=== PATIENT | female | born 1985 | race Hispanic/Latino ===

== ENCOUNTER 2019-08-17 07:12 | Emergency (ER) | payer OTHER, SELFPAY ==
--- OUTSIDE RECORDS SUMMARY | 2019-08-17 07:15 | XMS REPORT | Continuity of Care Document ---
:1985 Author Organization [facility] t Address [address] [place] [address] Care Team Providers Name Role Phone Unavailable Unavailable Unavailable Problems Condition Condition Condition Status Onset Resolution Last Treating Co mments Source Name Details Category Date Date Treatment Clinician Date Iron Iron Diagnosis Active [facility] deficiency deficiency Edna kes - anemia, anemia, Memoria unspecifie unspecifie l d iron d iron Outpati deficiency deficiency en t anemia anemia Clinics type type Adult BMI Adult BMI Problem Active [facility] 34.0-34.9 34.0-34.9 Luke s - kg/sq m kg/sq m Memoria [facility] ent Clinics Fatigue, Fatigue, Problem Active [facility]specifie Edna kes - [facility] Vitamin D Vitamin D Diagnosis Active [facility] deficiency [facility] En[facility] Allergies, Adverse Reactions, Alerts This patient has no known allergies or adverse reactions. Medications Ordered Filled Start Stop Current Ordering Indication Dosage Frequency Signature Comments Components Source Medication Medication Date Date Medication? Clinician (SIG) Name Name Vitamin D3 Vitamin D3 2018- No Anthony [address] [facility] 09-13 [facility] - 00:00: 00:00 Memoria 00 :00 [facility] Clinics Ferrous Ferrous Yes Anthony [address] Sulfate Sulfate 05-17 [facility] - 00:00: Memoria 00 [facility] Clinics Procedures This patient has no known procedures. Encounters Start End Encounter Admission Attending Care Care Encounter Source Date/Time Date/Time Type Type Clinicians Facility Department ID 2017-10-10 2017-10-10 [facility] [id number] [facility] [address] 07:55:00 07:55:[address] [facility] 2017-09-13 2017-09-13 Outpatient Jessa Germaint [id number] 10:00:00 10:00:00 [facility] [employer] [facility] 2017-05-17 2017-05-17 Outpatient Jessa Germaint [id number] 10:30:00 10:30:00 [employer] [facility] ent Clinics Results This patient has no known results.
--- NOTE | 2019-08-17 09:52 | ER ---
Nurse's Notes [facility] Name: Mandi Solitario Age: 33 yrs Sex: Female : 1985 Arrival Date: 08/17/2019 Time: 07:18 Bed DIS2 Private MD: Diagnosis: Acute pharyngitis Presentation: 08/16 07:52 Chief complaint: Patient states: sore throat since yesterday, no fever. Coronavirus iw screen: Proceed with normal triage. Patient denies a cough. Patient denies shortness of breath or difficulty breathing. Patient denies measured and/or subjective temperature greater than 100.4F prior to today's visit. Patient denies travel on a cruise ship or to a country the [facility] currently lists as an affected area. Patient denies contact with known and/or suspected case of COVID-19. Ebola Screen: Patient negative for fever greater than or equal to 101.5 degrees Fahrenheit, and additional compatible Ebola Virus Disease symptoms Patient denies exposure to infectious person. Patient denies travel to an Ebola-affected area in the 21 days before illness onset. No symptoms or risks identified at this time. Initial Sepsis Screen: Does the patient meet any 2 criteria? No. Patient's initial sepsis screen is negative. Does the patient have a suspected source of infection? No. Patient's initial sepsis screen is negative. Risk Assessment: Do you want to hurt yourself or someone else? Patient reports no desire to harm self or others. Onset of symptoms was August 16, 2019. 07:52 Method Of Arrival: Ambulatory iw 07:52 Acuity: JUAN 4 iw Triage Assessment: 09:00 General: Appears in no apparent distress. comfortable, Behavior is calm, cooperative, bp appropriate for age. Pain: Complains of pain in SORE THROAT. EENT: Reports pain when swallowing. Neuro: No deficits noted. Cardiovascular: No deficits noted. Respiratory: No deficits noted. GI: No signs and/or symptoms were reported involving the gastrointestinal system. : No signs and/or symptoms were reported regarding the genitourinary system. Derm: No deficits noted. Musculoskeletal: No deficits noted. 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 - Social history:: Smoking status: Patient denies any tobacco usage or history of. Screenin:55 Abuse screen: Denies threats or abuse. Denies injuries from another. Nutritional iw screening: No deficits noted. Tuberculosis screening: No symptoms or risk factors identified. Fall Risk None identified. Assessment: 07:55 General: Appears in no apparent distress. Behavior is calm, cooperative. General: iw Denies fever, fatigue, chills. Pain: Complains of pain in throat. Neuro: Level of Consciousness is awake, alert, obeys commands, Oriented to person, place, time, situation. Cardiovascular: Patient's skin is warm and dry. Respiratory: Airway is patent Respiratory effort is even, unlabored, Breath sounds are clear bilaterally. GI: No signs and/or symptoms were reported involving the gastrointestinal system. EENT: Throat is clear Reports difficulty swallowing pain when swallowing. Musculoskeletal: Range of motion: intact in all extremities. Vital Signs: 07:52 BP 112 / 91; Pulse 81; Resp 16; Temp 98.3; Pulse Ox 100% on R/A; Weight 67.13 kg; iw Height 4 ft. 9 in. (144.78 cm); Pain 6/10; 07:52 Body Mass Index 32.03 (67.13 kg, 144.78 cm) iw ED Course: 07:18 Patient arrived in ED. ag5 07:40 Amrita Parra, LATASHA is Primary Nurse. iw 07:41 Nicolas Davis NP is PHCP. pm1 07:41 Franky Fenton MD is Attending Physician. pm1 07:53 Triage completed. iw 07:53 Arm band placed on. iw 09:03 Patient has correct armband on for positive identification. Bed in low position. Call bp light in reach. Side rails up X2. 09:10 Bia from lab notified the COVID swab to be sent to [facility]. eb 10:07 No provider procedures requiring assistance completed. Patient did not have IV access iw during this emergency room visit. Administered Medications: No medications were administered Outcome: 09:52 Discharge ordered by . pm1 10:07 Discharged to home iw 10:07 Condition: good 10:07 Discharge instructions given to patient, Instructed on discharge instructions, follow up and referral plans. Demonstrated understanding of instructions, follow-up care. 10:08 Patient left the ED. iw Addendum: 08/19/2019 13:18 Addendum: Other pt notified of negative COVID-19 swab results. d m5 Signatures: Sue Hernández, RN RN dm5 Amrita Parra RN RN iw Nicolas Davis, PROCUREMENT ENGINEER PROCUREMENT ENGINEER pm1 Justin Carcamo RN RN Martha Broussard Ajare 5
--- NOTE | 2019-08-17 09:52 | EDPHYS ---
Physician Documentation [facility] Name: Mandi Solitario Age: 33 yrs Sex: Female : 1985 Arrival Date: 08/17/2019 Time: 07:18 Bed DIS2 Private MD: ED Physician Franky Fenton HPI: 08/16 08:30 This 33 yrs old Female presents to ER via Ambulatory with complaints of Sore pm1 Throat. 08:30 The patient presents with sore throat. The patient describes throat pain as raw, pm1 scratchy. Onset: The symptoms/episode began/occurred yesterday. Severity of symptoms: in the emergency department the symptoms are unchanged. Modifying factors: The symptoms are alleviated by nothing, the symptoms are aggravated by swallowing, Patient's oral intake status: good The patient has had contact with sick Father in law with positive covid result. Associated signs and symptoms: The patient has no apparent associated signs or symptoms, Pertinent negatives chest pain, diarrhea, fever, flu-like symptoms, rhinorrhea, shortness of breath, vomiting. The patient has not recently seen a physician. 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 - Social history:: Smoking status: Patient denies any tobacco usage or history of. ROS: 08:30 Constitutional: Negative for fever, chills, and weight loss, Eyes: Negative for injury, pm1 pain, redness, and discharge. 08:30 Neck: Negative for injury, pain, and swelling, Cardiovascular: Negative for chest pain, palpitations, and edema, Respiratory: Negative for shortness of breath, cough, wheezing, and pleuritic chest pain, Abdomen/GI: Negative for abdominal pain, nausea, vomiting, diarrhea, and constipation, Back: Negative for injury and pain, MS/Extremity: Negative for injury and deformity, Skin: Negative for injury, rash, and discoloration, Neuro: Negative for headache, weakness, numbness, tingling, and seizure. 08:30 ENT: Positive for sore throat, Negative for drainage from ear(s), ear pain, difficulty swallowing, difficulty handling secretions, hoarseness. Exam: 08:30 Constitutional: This is a well developed, well nourished patient who is awake, alert, pm1 and in no acute distress. Head/Face: Normocephalic, atraumatic. 08:30 Neck: Trachea midline, no thyromegaly or masses palpated, and no cervical lymphadenopathy. Supple, full range of motion without nuchal rigidity, or vertebral point tenderness. No Meningismus. 08:30 Back: No spinal tenderness. No costovertebral tenderness. Full range of motion. Skin: Warm, dry with normal turgor. Normal color with no rashes, no lesions, and no evidence of cellulitis. MS/ Extremity: Pulses equal, no cyanosis. Neurovascular intact. Full, normal range of motion. 08:30 ENT: External ear(s): are unremarkable, Ear canal(s): are normal, TM's: are normal, Posterior pharynx: Airway: no evidence of obstruction, Tonsils: bilaterally enlarged, with erythema, no exudate, no ulcerations, peritonsillar mass, is not appreciated. 08:30 Cardiovascular: Exam negative for acute changes, Rate: normal, Rhythm: regular, Pulses: no pulse deficits are appreciated. 08:30 Respiratory: Exam negative for acute changes, respiratory distress, shortness of breath. 08:30 Neuro: Exam negative for acute changes, Orientation: is normal, Mentation: is normal, Motor: is normal, moves all fours, Sensation: is normal, no obvious gross deficits, Gait: is steady, at a normal pace, without difficulty. Vital Signs: 07:52 BP 112 / 91; Pulse 81; Resp 16; Temp 98.3; Pulse Ox 100% on R/A; Weight 67.13 kg; iw Height 4 ft. 9 in. (144.78 cm); Pain 6/10; 07:52 Body Mass Index 32.03 (67.13 kg, 144.78 cm) iw MDM: 07:43 Patient medically screened. pm1 08:30 ED course: Patient unable to contact community testing centers and would like to get pm1 covid19 swab completed here. Patient aware that swab results could take up to a week. 09:51 Data reviewed: vital signs. Data interpreted: Pulse oximetry: on room air is 100 %. pm1 Interpretation: normal. Counseling: I had a detailed discussion with the patient and/or guardian regarding: the historical points, exam findings, and any diagnostic results supporting the discharge/admit diagnosis, lab results, the need for outpatient follow up, to return to the emergency department if symptoms worsen or persist or if there are any questions or concerns that arise at home. 08/16 08:03 Order name: Flu; Complete Time: 09:55 pm1 08/16 08:03 Order name: Strep; Complete Time: 09:55 pm1 08/16 08:30 Order name: COVID-19 pm1 08/16 09:27 Order name: Throat Culture EDMS Administered Medications: No medications were administered Disposition: 12:01 Co-signature as Attending Physician, Franky Fenton MD. rn Disposition: 08/17/19 09:52 Discharged to Home. Impression: Acute pharyngitis. - Condition is Stable. - Discharge Instructions: Pharyngitis. - Work release form, Medication Reconciliation Form, Thank You Letter, Antibiotic Education, Prescription Opioid Use form. - Follow up: Emergency Department; When: As needed; Reason: Worsening of condition. Follow up: Private Physician; When: 2 - 3 days; Reason: Recheck today's complaints, Continuance of care, Re-evaluation by your physician. - Problem is new. - Symptoms have improved. Signatures: Dispatcher [employer] EDSD Amrita Parra RN RN iw Nieto, Roman, MD MD rn Marinas, Patrick, VERONICA MANAGER IT SECURITY pm1 Corrections: (The following items were deleted from the chart) 10:08 09:52 08/17/2019 09:52 Discharged to Home. Impression: Acute pharyngitis. Condition is iw Stable. Forms are Medication Reconciliation Form, Thank You Letter, Antibiotic Education, Prescription Opioid Use. Follow up: Emergency Department; When: As needed; Reason: Worsening of condition. Follow up: Private Physician; When: 2 - 3 days; Reason: Recheck today's complaints, Continuance of care, Re-evaluation by your physician. Problem is new. Symptoms have improved. pm1
[2019-08-17 10:14] VITALS: BP 112/91; TEMP 98.3; O2SAT 100
== END 2019-08-17 10:08 | disposition home or self-care (01) ==
LOC: ER 07:12
DX: J02.9 Acute pharyngitis, unspecified (principal); Z20.828 Contact with and (suspected) exposure to other viral communicable diseases
CPT/HCPCS: 87070; 87081; 87804; 99281; U0002

== ENCOUNTER 2024-02-18 01:21 | Emergency (ER) | payer SELFPAY ==
--- OUTSIDE RECORDS SUMMARY | 2024-02-18 01:24 | XMS REPORT | Continuity of Care Document ---
Author Name Unknown Address [address] [facility] [place] [address] [facility] Address [address] [facility] [address] [place] [address] Care Team Providers Care Collet Maker Name Role Phone Unavailable Unavailable Unavailable Problems Condition Name Condition Details Condition Category Status Onset Date Resolution Date Last Treatment Date Treating Clinician Comments Source Iron deficiency anemia, unspecifie d iron deficiency anemia type Iron deficiency anemia, unspecifie d iron deficiency anemia type Diagnosis Active [facility] Adult BMI 34.0-34.9 kg/sq m Adult BMI 34.0-34.9 kg/sq m Problem Active [facility] Fatigue, unspecifie d type Fatigue, unspecifie d type Problem Active [facility] Vitamin D deficiency Vitamin D deficiency Diagnosis Active [facility] Medications Ordered Medication Name Filled Medication Name Start Date Stop Date Current Medication? Ordering Clinician Indication Dosage Frequency Signature (SIG) Comments Components Source Vitamin D3 Vitamin D3 09-13 00:00: 00 12-12 00:00 :00 No Anthony Gar 1 capsule [facility] Ferrous Sulfate Ferrous Sulfate 05-17 00:00: 00 Yes Anthony Gar 1 tablet [facility] Encounters Start Date/Time End Date/Time Encounter Type Admission Type Attending Clinicians Care Facility Care Department Encounter ID Source 2023-08-17 16:41:48 2023-08-17 16:41:48 Outpatient [facility] [id number] Jose Guadalupe Lagunas 2022-09-05 08:11:06 2022-09-05 08:11:06 Outpatient [facility] [id number] Jsoe Guadalupe Lagunas 2017-10-10 07:55:00 2017-10-10 07:55:00 Outpatient [facility] [id number] [facility] 2017-09-13 10:00:00 2017-09-13 10:00:00 Outpatient [facility] [id number] [facility] 2017-05-17 10:30:00 2017-05-17 10:30:00 Outpatient [facility] [id number] [facility]
--- NOTE | 2024-02-18 01:38 | EDPHYS ---
Physician Documentation [facility] Name: Mandi Solitario Age: 38 yrs Sex: Female : 1985 Arrival Date: 02/18/2024 Time: 01:21 Bed IW1 Private MD: ED Physician Bahman Trujillo HPI: 02/17 01:39 This 38 yrs old Female presents to ER via Unassigned with complaints of ec2 Toothache, Facial Swelling. 01:39 Patient arrives today for evaluation of right upper dental pain. Reports pain onset ec2 several days, worsening, some improvement with Tylenol. No fevers or chills, no issues with eating, no vomiting, no diarrhea.. 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 Flu vaccine is not up to date. - Infectious Disease History:: Denies. - Social history:: Smoking status: Patient denies any tobacco usage or history of. ROS: 01:39 Constitutional: as per hpi ec2 Exam: 01:39 Constitutional: GEN: NAD Head: atraumatic Eyes: EOMI Ears: External ears are normal. ec2 Mouth: Dentalgia in the right upper teeth, some erythema at the gumline, no significant caries, no overlying facial swelling appreciated, no erythema overlying the skin. No fluctuance appreciated. CV: regular rate LUNGS: no respiratory distress ABD: non-distended SKIN: no evidence of rashes MSK: no evidence of trauma Vital Signs: 01:50 BP 133 / 91; Pulse 78; Resp 15; Temp 97.8; Pulse Ox 100% ; Weight 72.57 kg; Height 5 vc1 ft. 1 in. ; Pain 8/10; 01:50 Body Mass Index 30.23 (72.57 kg, 154.94 cm) vc1 01:50 Pain Scale: Adult vc1 MDM: 01:37 Medical Screening Exam initiated ec2 01:39 Data reviewed: vital signs, nurses notes. ED course: Patient arrives today for right ec2 upper dental pain. Suspect possible dental infection. Without the patient on Augmentin and have the patient follow-up with dentist. Return precautions given.. Administered Medications: 01:49 Drug: HYDROcodone-acetaminophen PO 5 mg-325 mg 1 tabs PO once Route: PO; vc1 01:50 Follow up: Response: Medication administered at discharge. vc1 01:50 Drug: Amoxicillin-Clavulanate PO 875 mg PO once Route: PO; vc1 01:50 Follow up: Response: Medication administered at discharge. vc1 Disposition Summary: 02/18/24 01:37 Discharge Ordered Notes: Location: Home ec2 Condition: Stable ec2 Diagnosis - Dental Infection ec2 Followup: ec2 - With: Private Physician - When: - Reason: Re-evaluation by your physician Discharge Instructions: - Discharge Summary Sheet ec2 - Dental Abscess, [id number] ec2 Forms: - Work release form ss - Medication Reconciliation Form ec2 - Antibiotic Education ec2 - Prescription Opioid Use ec2 - Patient Portal Instructions ec2 - Leadership Thank You Letter ec2 Prescriptions: - acetaminophen-codeine 300-30 mg Oral tablet - take 1 tablet ORAL route every 6 hours; 15 tablet; Refills: 0, Product ec2 Selection Permitted - Augmentin 875-125 mg Oral Tablet - take 1 tablet ORAL route every 12 hours for 10 days; 20 tablet; Refills: 0, ec2 Product Selection Permitted Signatures: Jyoti Xie RN RN vc1 Bahman Trujillo MD MD ec2
[2024-02-18] MEDS ORDERED: AMOX/K CLAV 875 MG TAB ONE (01:42)
[2024-02-18] MEDS ORDERED: HYDROCODONE/APAP 5/325 MG TAB ONE (01:42)
--- NOTE | 2024-02-18 01:56 | ER ---
Nurse's Notes [facility] Name: Mandi Solitario Age: 38 yrs Sex: Female : 1985 Arrival Date: 02/18/2024 Time: 01:21 Bed IW1 Private MD: Diagnosis: Dental Infection Presentation: 02/17 01:50 Chief complaint: Patient states: left upper tooth pain for 3 days. Coronavirus screen: vc1 Client denies travel out of the [place] in the last 14 days. At this time, the client does not indicate any symptoms associated with coronavirus-19. Ebola Screen: Patient negative for fever greater than or equal to 101.5 degrees Fahrenheit, and additional compatible Ebola Virus Disease symptoms Patient denies exposure to infectious person. Patient denies travel to an Ebola-affected area in the 21 days before illness onset. No symptoms or risks identified at this time. Initial Sepsis Screen: Does the patient meet any 2 criteria? No. Patient's initial sepsis screen is negative. Does the patient have a suspected source of infection? No. Patient's initial sepsis screen is negative. Risk Assessment: Do you want to hurt yourself or someone else? Patient reports no desire to harm self or others. Onset of symptoms was February 15, 2024. Care prior to arrival: None. Activity prior to arrival: None. 01:50 Method Of Arrival: Ambulatory vc1 01:50 Acuity: JUAN 4 vc1 Triage Assessment: 01:53 General: Appears in no apparent distress. uncomfortable, well groomed, well developed, vc1 well nourished, Behavior is calm, cooperative, appropriate for age. Pain: Complains of pain in upper right first bicuspid. EENT: Reports pain in upper right second bicuspid. Neuro: Level of Consciousness is awake, alert, obeys commands, Oriented to person, place, time, situation, Appropriate for age. Cardiovascular: Capillary refill < 3 seconds Patient's skin is warm and dry. Cardiovascular: Heart tones S1 S2 present. Respiratory: Airway is patent Respiratory effort is even, unlabored, Respiratory pattern is regular, symmetrical, Breath sounds are clear bilaterally. GI: No deficits noted. No signs and/or symptoms were reported involving the gastrointestinal system. : No deficits noted. No signs and/or symptoms were reported regarding the genitourinary system. Derm: Skin is intact, is healthy with good turgor, Skin is dry, Skin is normal, Skin temperature is warm. Musculoskeletal: Circulation, motion, and sensation intact. Range of motion: intact in all extremities. 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 Flu vaccine is not up to date. - Infectious Disease History:: Denies. - Social history:: Smoking status: Patient denies any tobacco usage or history of. Screenin:52 [facility] ED Fall Risk Assessment (Adult) History of falling in the last 3 months, vc1 including since admission No falls in past 3 months (0 pts) Confusion or Disorientation No (0 pts) Intoxicated or Sedated No (0 pts) Impaired Gait No (0 pts) Mobility Assist Device Used No (0 pt) Altered Elimination No (0 pt) Score/Fall Risk Level 0 - 2 = Low Risk Oriented to surroundings, Maintained a safe environment, Educated pt \T\ family on fall prevention, incl call for assistance when getting out of bed. Abuse screen: Denies threats or abuse. Nutritional screening: No deficits noted. Tuberculosis screening: No symptoms or risk factors identified. Vital Signs: 01:50 BP 133 / 91; Pulse 78; Resp 15; Temp 97.8; Pulse Ox 100% ; Weight 72.57 kg; Height 5 vc1 ft. 1 in. ; Pain 8/10; 01:50 Body Mass Index 30.23 (72.57 kg, 154.94 cm) vc1 01:50 Pain Scale: Adult vc1 ED Course: 01:23 Patient arrived in ED. jj6 01:24 Bahman Trujillo MD is Attending Physician. ec2 01:49 Jyoti Xie RN is Primary Nurse. vc1 01:51 Triage completed. vc1 01:52 Arm band placed on right wrist. vc1 01:52 Patient has correct armband on for positive identification. Provided Education on: abx. vc1 01:52 No provider procedures requiring assistance completed. Patient did not have IV access vc1 during this emergency room visit. Administered Medications: 01:49 Drug: HYDROcodone-acetaminophen PO 5 mg-325 mg 1 tabs PO once Route: PO; vc1 01:50 Follow up: Response: Medication administered at discharge. vc1 01:50 Drug: Amoxicillin-Clavulanate PO 875 mg PO once Route: PO; vc1 01:50 Follow up: Response: Medication administered at discharge. vc1 Medication: 01:55 VIS not applicable for this client. vc1 Outcome: 01:37 Discharge ordered by . ec2 01:55 Discharged to home ambulatory, vc1 01:55 Condition: good 01:55 Discharge instructions given to patient, Instructed on discharge instructions, follow up and referral plans. Demonstrated understanding of instructions, follow-up care, medications, Prescriptions given X 2, 01:55 Patient left the ED. vc1 Signatures: Kaye Manzo jj6 Jyoti Xie RN RN vc1 Bahman Trujillo MD MD ec2
[2024-02-18 02:00] VITALS: BP 133/91; TEMP 97.8; O2SAT 100
== END 2024-02-18 01:55 | disposition home or self-care (01) ==
LOC: ER 01:21
DX: K04.7 Periapical abscess without sinus (principal)
CPT/HCPCS: 99283